=== PATIENT | male | born 1935 | race Caucasian/White ===

== ENCOUNTER 2018-06-28 15:39 | Observation (INO) | payer OTHER ==
[~2018-06-28] VITALS: Ht 177.8 cm; Wt 94.8 kg
[~2018-06-28 15:39] MED LIST: ACTOS15 MG PO; ADULT LOW DOSE81 M1 PO; ASPIR-TRIN325 M1 PO; B-121000 MC2 PO; FOLIC ACID0.4 MG PO; GLUCOPHAGE500 MG PO; GLYNASE3 MG PO; IRON325 MG PO; LASIX40 MG PO; LOPRESSOR25 MG PO; METFORMIN HCL500 MG PO; NEXIUM40 MG PO; NORVASC10 MG PO; NORVASC5 MG PO; OMEPRAZOLE40 M1 PO; PANTOPRAZOLE SO40 MG PO; PLAVIX75 MG PO; PRAVACHOL20 MG PO; PRAVACHOL80 MG PO; PRILOSEC20 MG PO; PRINIVIL20 MG PO; THERAGRAN1 TABLET PO; TRICOR145 MG PO; VICODIN 5-3001 EACH PO; VITAMIN E1000 UNI1 PO; ZESTRIL,PRINIVI10 M1 PO; ZITHROMAX500 MG PO; Zestril,Prinivil PO
[2018-06-28 16:43] LABS: HEMOGLOBIN 11.3 G/DL (12.5-16.6); MCH 30.8 PG (29.0-34.0); MCHC 33.2 G/DL (30.0-36.0); MCV 92.6 FL (86-99); PLATELET COUNT 89 K/uL (156-360); RBC DIS.WIDTH-CV 13.1 % (11.8-14.6); RBC DIS.WIDTH-SD 44.4 % (39-53); RED BLOOD COUNT 3.67 M/uL (4.00-5.50); WHITE BLOOD COUNT 3.7 K/uL (4.1-10.2)
[2018-06-28 16:52] LABS: ALBUMIN 3.8 g/dL (3.2-4.8)
[2018-06-28 16:53] LABS: CHLORIDE 106 mEq/L (99-109); POTASSIUM 4.5 mEq/L (3.7-5.4); SODIUM 139 mEq/L (136-147)
[2018-06-28 16:55] LABS: GLUCOSE 200 mg/dL (70-99); TOTAL PROTEIN 6.2 g/dL (6.4-8.3)
[2018-06-28 16:58] LABS: ALKALINE PHOSPHATASE 46 IU/L (3-129)
[2018-06-28 16:59] LABS: CREATININE 1.1 mg/dL (0.6-1.3); GFR ESTIMATE (CALCULATED) > 59 mL/min/ (58.99-99999)
[2018-06-28 17:00] LABS: AST (GOT) 27 IU/L (2-34); UREA NITROGEN (BUN) 15 mg/dL (9-23)
[2018-06-28 17:02] LABS: ALT (GPT) 25 IU/L (3-49)
[2018-06-28 17:04] LABS: TROP-I INTERPRETATION NEGATIVE; TROPONIN-I < 0.01 ng/mL (0.0-0.30)
[2018-06-28] MEDS ORDERED: FENOFIBRATE145 M1 PO (18:35)
[2018-06-28] MEDS ORDERED: GLIPIZIDE XL5 MG PO (18:35)
[2018-06-28 19:48] LABS: MAGNESIUM 2.2 mg/dL (1.3-2.7)
[2018-06-28 21:30] LABS: APPEARANCE CLEAR ((CLEAR)); BILIRUBIN NEGATIVE; BLOOD NEGATIVE; COLOR YELLOW ((YELLOW)); GLUCOSE (STRIP) 150; KETONES NEGATIVE; LEUKOCYTES NEGATIVE; NITRITE NEGATIVE; PROTEIN (STRIP) NEGATIVE; UCUL ADDED? NO
[2018-06-28 23:21] LABS: TROP-I INTERPRETATION NEGATIVE; TROPONIN-I < 0.01 ng/mL (0.0-0.30)
[2018-06-29 00:13] VITALS: BP 157/70
[2018-06-29 04:10] VITALS: BP 115/56
[2018-06-29 05:46] LABS: TROP-I INTERPRETATION NEGATIVE; TROPONIN-I < 0.01 ng/mL (0.0-0.30)
[2018-06-29 05:49] LABS: CHLORIDE 107 MEQ/L (99-109); GFR ESTIMATE (CALCULATED) > 59 mL/min/ (58.99-99999); GLUCOSE 160 mg/dL (70-99); HDL CHOLESTEROL 33 MG/DL (Desirable>=40); LDL CHOLESTEROL 45 mg/dL (Desirable<100); NON-HDL CHOLESTEROL 60 mg/dL (Desirable<160); SODIUM 139 MEQ/L (136-147); TOTAL CHOLESTEROL 93 mg/dL (Desirable<200); TRIGLYCERIDES 76 MG/DL (Normal: <150); UREA NITROGEN (BUN) 16 mg/dL (9-23)
[2018-06-29 07:33] VITALS: BP 159/78
[2018-06-29 11:15] VITALS: BP 167/74
[2018-06-29 11:16] VITALS: BP 162/72
[2018-06-29] MEDS ORDERED: PROTONIX40 MG PO (12:04)
[2018-06-29 13:01] LABS: HEMOGLOBIN A1c (GLYCOHEMOGLOB) 8.4 % (Below 5.7)
== END 2018-06-29 14:14 | disposition home or self-care (01) ==
LOC: EME 15:39 → EDOF 19:16 → 4SOUTH 19:16 → EDOF 19:16 → ENRESERV 19:32 → 4SOUTH 21:07
PROVIDERS: Emergency Medicine; Hospitalist; Physician Assistant Medical
DX: R07.89 Other chest pain (principal); I25.10 Atherosclerotic heart disease of native coronary artery without angina pectoris; N17.9 Acute kidney failure, unspecified; E86.0 Dehydration; I10 Essential (primary) hypertension; D61.818 Other pancytopenia; I25.2 Old myocardial infarction; Z95.1 Presence of aortocoronary bypass graft; Z85.01 Personal history of malignant neoplasm of esophagus; Z87.19 Personal history of other diseases of the digestive system; D64.9 Anemia, unspecified; Z92.3 Personal history of irradiation; Z92.21 Personal history of antineoplastic chemotherapy; E78.5 Hyperlipidemia, unspecified; E11.40 Type 2 diabetes mellitus with diabetic neuropathy, unspecified; E11.65 Type 2 diabetes mellitus with hyperglycemia; M10.9 Gout, unspecified; K21.9 Gastro-esophageal reflux disease without esophagitis; Z86.73 Personal history of transient ischemic attack (TIA), and cerebral infarction without residual deficits; Z90.49 Acquired absence of other specified parts of digestive tract; Z82.49 Family history of ischemic heart disease and other diseases of the circulatory system; Z83.3 Family history of diabetes mellitus; H91.91 Unspecified hearing loss, right ear; Z88.0 Allergy status to penicillin; Z86.74 Personal history of sudden cardiac arrest; Z79.82 Long term (current) use of aspirin; Z79.02 Long term (current) use of antithrombotics/antiplatelets; Z79.84 Long term (current) use of oral hypoglycemic drugs
CPT/HCPCS: 71046; 80048; 80053; 80061; 81003; 82948; 83036; 83735; 84484; 85027; 93005; 93306; 99281; 99285; G0378; J1644; J1815; J7030

== ENCOUNTER 2018-07-01 21:59 | Emergency (ER) | payer OTHER ==
[~2018-07-01] VITALS: Ht 177.8 cm; Wt 97.5 kg
[~2018-07-01 21:59] MED LIST changes: +FENOFIBRATE145 M1 PO; +GLIPIZIDE XL5 MG PO; +PROTONIX40 MG PO
[2018-07-02 00:07] VITALS: BP 148/72
== END 2018-07-02 00:08 | disposition home or self-care (01) ==
LOC: EME 21:59
DX: S51.811A Laceration without foreign body of right forearm, initial encounter (principal); X58.XXXA Exposure to other specified factors, initial encounter; Z79.02 Long term (current) use of antithrombotics/antiplatelets; I10 Essential (primary) hypertension; E11.9 Type 2 diabetes mellitus without complications; Z79.84 Long term (current) use of oral hypoglycemic drugs; Z79.82 Long term (current) use of aspirin; Z85.01 Personal history of malignant neoplasm of esophagus; Z88.0 Allergy status to penicillin
CPT/HCPCS: 99281; 99283